=== PATIENT | female | born 1995 | race Caucasian/White ===

== ENCOUNTER 2017-01-16 15:35 | Outpatient (CLI) | payer OTHER ==
[~2017-01-16] VITALS: Ht 154.9 cm; Wt 58.2 kg
[2017-01-16 15:57] VITALS: BP 119/76
[2017-01-16] MEDS ORDERED: PRENATAL TABLE1 EAC3 PO (15:59)
== END 2017-01-16 16:50 | disposition home or self-care (01) ==
LOC: LDRP-OP 15:35 → 2WEST 15:36 → LDRP-OP 02-21 12:00
DX: O47.1 False labor at or after 37 completed weeks of gestation (principal); Z3A.38 38 weeks gestation of pregnancy
CPT/HCPCS: 59025; G0378

== ENCOUNTER 2017-01-18 23:29 | Outpatient (CLI) | payer OTHER ==
[~2017-01-18 23:29] MED LIST: PRENATAL TABLE1 EAC3 PO
[2017-01-18 23:47] VITALS: BP 106/64
== END 2017-01-19 00:30 | disposition home or self-care (01) ==
LOC: LDRP-OP 23:29 → 2WEST 23:30 → LDRP-OP 02-21 18:24
DX: O26.893 Other specified pregnancy related conditions, third trimester (principal); Z3A.39 39 weeks gestation of pregnancy
CPT/HCPCS: 59025; G0378

== ENCOUNTER 2017-01-26 16:52 | Inpatient (IN) | payer OTHER ==
[~2017-01-26] VITALS: Ht 154.9 cm; Wt 58.6 kg
[2017-01-26] VITALS (7 sets, daily range): BP systolic 98–116; BP diastolic 57–76
[2017-01-26 18:01] LABS: EOSINOPHIL (%) 0.7 % (0-5); EOSINOPHIL COUNT 0.1 K/uL (0-0.3); HEMATOCRIT 41.4 % (36.0-46.0); IMMATURE GRANULOCYTE (%) 0.6 % (0.0-0.7); IMMATURE GRANULOCYTE COUNT 0.1 K/uL; INSTRUMENT ABS NEUTROPHIL CT 9.1 K/uL; LYMPHOCYTE COUNT 1.5 K/uL (1.0-2.8); MCH 28.4 PG (29.0-34.0); MCHC 33.3 G/DL (30.0-36.0); MCV 85.2 FL (83-99); MEAN PLAT.VOLUME 11.4 uM^3 (9.5-12.4); MONOCYTE (%) 6.3 % (3-12); MONOCYTE COUNT 0.7 K/uL (0-0.8); NEUTROPHIL (%) 78.8 % (45-76); NEUTROPHIL COUNT 9.1 K/uL (1.8-6.4); PLATELET COUNT 122 K/uL (156-360); RBC DIS.WIDTH-CV 12.9 % (11.8-14.6); RBC DIS.WIDTH-SD 39.7 % (39-53); RED BLOOD COUNT 4.86 M/uL (3.80-5.20); WHITE BLOOD COUNT 11.6 K/uL (4.1-10.2)
[2017-01-27] VITALS (15 sets, daily range): BP systolic 91–120; BP diastolic 53–76
[2017-01-28 07:34] LABS: EOSINOPHIL (%) 1.7 % (0-5); EOSINOPHIL COUNT 0.2 K/uL (0-0.3); HEMATOCRIT 34.4 % (36.0-46.0); IMMATURE GRANULOCYTE (%) 0.5 % (0.0-0.7); IMMATURE GRANULOCYTE COUNT 0.1 K/uL; INSTRUMENT ABS NEUTROPHIL CT 8.8 K/uL; LYMPHOCYTE COUNT 2.4 K/uL (1.0-2.8); MCH 27.8 PG (29.0-34.0); MCHC 31.4 G/DL (30.0-36.0); MCV 88.4 FL (83-99); MEAN PLAT.VOLUME 11.1 uM^3 (9.5-12.4); MONOCYTE (%) 7.9 % (3-12); NEUTROPHIL (%) 70.6 % (45-76); NEUTROPHIL COUNT 8.8 K/uL (1.8-6.4); PLATELET COUNT 121 K/uL (156-360); RBC DIS.WIDTH-CV 13.3 % (11.8-14.6); RED BLOOD COUNT 3.89 M/uL (3.80-5.20); WHITE BLOOD COUNT 12.4 K/uL (4.1-10.2)
[2017-01-28 07:36] VITALS: BP 105/65
[2017-01-28 15:41] VITALS: BP 101/65
[2017-01-29 08:29] VITALS: BP 109/71
[2017-01-29] MEDS ORDERED: Tylenol Extra Streng PO (14:06)
[2017-01-29 15:06] VITALS: BP 121/80
== END 2017-01-29 17:27 | disposition home or self-care (01) | DRG 775 ==
LOC: LDRP-OP 16:52 → 2WEST 16:55 → LDRP-OP 02-21 00:45
PROVIDERS: Advanced Practice Midwife
DX: O48.0 Post-term pregnancy (principal); O70.0 First degree perineal laceration during delivery; Z3A.40 40 weeks gestation of pregnancy; Z37.0 Single live birth
CPT/HCPCS: 59025; 85025; G0378; J0595; J2405; J7120